=== PATIENT | female | born 1970 | race Caucasian/White ===

== ENCOUNTER → 2016-12-29 | Outpatient (CLI) | payer BC ==
[~2016-12-29] MED LIST: CAMILA; GLC500 PO; PRLSR20 PO; SIMV20TA2 PO
--- NOTE | 2016-12-29 18:19 | MOTOR CONDUCTION ---
REQUESTING PHYSICIAN: Dr. Hyde. CLINICAL DIAGNOSIS: Known epilepsy with prolonged episode of memory loss several weeks ago. EEG: Abnormal EEG during wakefulness with short duration bursts of 3-5 Hz rhythmic slow wave activity with occasional sharp forms associated and at other times more typical blunted spike and wave activity at similar frequency without clinical accompaniments. DESCRIPTION OF TRACING: This EEG was done in the laboratory is of good technical quality. A simultaneous video analysis of patient movement and behavior was obtained. Photic stimulation was performed. Hyperventilation was not. Drowsiness and light sleep were briefly obtained. Under these conditions, there is evidence for normal background rhythm in the alpha range of up to 10 Hz of maximum frequency and 30 microvolts of maximum amplitude. This is maximum posterior head regions bilaterally symmetrical. Polymorphic mid frequency theta activity is seen over all head regions without clear focal or regional predominance. Anterior head region maximum bilaterally symmetrical low voltage fast activity in the beta range is present. The major abnormal feature of the tracing is a presence of 3-4 seconds and often shorter duration spontaneous bursts of rhythmic moderate to moderately high amplitude slow wave activity occasionally associated with sharp wave or spike like discharge and occurring at a frequency of about 3-5 Hz. This tends to be maximum in the frontocentral regions occasionally spreads more posteriorly and it is never accompanied by any abnormal movements or other manifestations that might be a clinical seizures based on the video analysis of the patient movement and behavior. There are multiple episodes of this occurring throughout the recording during wakefulness and during the brief duration periods of drowsiness and sleep. These events seem to correlate with photic stimulation which does provoke a modest driving response without a photomyogenic or photoparoxysmal component. INTERPRETATION: This EEG is abnormal in a pattern that suggests an underlying primary generalized epilepsy. The discharges have a somewhat atypical nature to them and that they are often not associated with a clearly defined spike or sharp wave, but several of them are. Clinical correlation is required. [facility]
== END | disposition home or self-care (01) ==
LOC: C.NEUR 07:48
PROVIDERS: ATTEND Psychiatry & Neurology Neurology
DX: G40.909 Epilepsy, unspecified, not intractable, without status epilepticus (principal)